=== PATIENT | female | born 1975 | race African-American/Black ===

== ENCOUNTER → 2016-11-08 | Outpatient (CLI) | payer MEDICARE, MEDICAID | LOC: OD 14:09 | PROVIDERS: ATTEND Family Medicine | DX: S49.91XA Unspecified injury of right shoulder and upper arm, initial encounter (principal); S89.91XA Unspecified injury of right lower leg, initial encounter; X58.XXXA Exposure to other specified factors, initial encounter ==

== ENCOUNTER → 2017-02-28 | Outpatient (CLI) | payer MEDICARE, MEDICAID ==
--- NOTE | 2017-02-28 14:21 | RADIOLOGY REPORT (SQ) ---
EXAM DESCRIPTION: KNEE LEFT 4 VIEWS COMPLETED DATE/TIME: 02/28/2017 10:24 am REASON FOR STUDY: PAIN IN LEFT KNEE M25.562 PAIN IN LEFT KNEE COMPARISON: None. NUMBER OF VIEWS: Four views. TECHNIQUE: AP, lateral, and both oblique radiographic images acquired of the left knee. LIMITATIONS: None. FINDINGS: MINERALIZATION: Normal. BONES: No acute fracture or dislocation. No worrisome bone lesions. Medial compartment and patellofem oral osteophytes. JOINT: No effusion. No chondrocalcinosis. OTHER: No other significant finding. IMPRESSION: Medial compartment and patellofemoral osteophytes. TECHNICAL DOCUMENTATION: JOB ID: [id number] [employer]- All Rights Reserved
== END ==
LOC: OD 10:01
PROVIDERS: ATTEND Family Medicine
DX: M25.562 Pain in left knee (principal)

== ENCOUNTER → 2017-03-21 | Outpatient (CLI) | payer MEDICARE, MEDICAID ==
--- NOTE | 2017-03-21 12:41 | RADIOLOGY REPORT (SQ) ---
EXAM DESCRIPTION: WRIST LEFT 3 VIEWS COMPLETED DATE/TIME: 03/21/2017 12:32 pm REASON FOR STUDY: PAIN IN LEFT WRIST M25.532 PAIN IN LEFT WRIST COMPARISON: None. NUMBER OF VIEWS: Three views. TECHNIQUE: AP, lateral, and oblique radiographic images acquired of the left wrist. LIMITATIONS: None. FINDINGS: MINERALIZATION: Normal. BONES: No acute fracture or dislocation. No worrisome bone lesions. Normal alignment. SOFT TISSUES: No soft tissue swelling. No foreign body. OTHER: No other significant finding. IMPRESSION: NEGATIVE STUDY OF THE LEFT WRIST. NO RADIOGRAPHIC EVIDENCE OF ACUTE INJURY. TECHNICAL DOCUMENTATION: JOB ID: [id number] [employer]- All Rights Reserved
== END ==
LOC: OD 11:49
PROVIDERS: ATTEND Family Medicine
DX: M25.532 Pain in left wrist (principal)

== ENCOUNTER 2018-05-08 16:58 | Emergency (ER) | payer MEDICARE, MEDICAID ==
[2018-05-08] MEDS ORDERED: PROMETHAZINE HCL 25 MG TABLET PO ONE (17:31)
--- NOTE | 2018-05-08 17:34 | ER Document Report ---
ED General - General Chief Complaint: Nausea/Vomiting Stated Complaint: VOMITING Time Seen by Provider: 05/08/18 17:27 Mode of Arrival: Ambulatory Information source: Patient Notes: 42-year-old female presents emergency department with complaints of nausea, generally weak, and a missed period. Patient is concerned that she is . She took a test that was -2 days ago. Patient's coming here for another test. She denies any abdominal pain, vomiting, diarrhea, constipation, vaginal bleeding, vaginal discharge TRAVEL OUTSIDE OF THE [place] IN LAST 30 DAYS: No - HPI Onset: Last week Onset/Duration: Gradual Quality of pain: No pain Severity: None Pain Level: Denies Associated symptoms: Nausea Exacerbated by: Denies Relieved by: Denies Similar symptoms previously: No Recently seen / treated by doctor: No - Related Data Allergies/Adverse Reactions: lisinopril [Lisinopril] Allergy (Mild, Verified 05/08/18 17:14) rash penicillin V potassium [From Pen-Vee K] Allergy (Mild, Verified 05/08/18 17:14) rash ondansetron [Ondansetron] Adverse Reaction (Intermediate, Verified 05/08/18 17: 14) Generalized Itching Past Medical History - General Information source: Patient - Social History Smoking Status: Former Smoker Frequency of alcohol use: None Drug Abuse: None Family History: Hypertension Patient has suicidal ideation: No Patient has homicidal ideation: No - Past Medical History Cardiac Medical History: Reports: Hx Hypertension Pulmonary Medical History: Reports: Hx Asthma Neurological Medical History: Reports: Hx Cerebrovascular Accident - Pt reports CVA from HTN 07/2012 Renal/ Medical History: Denies: Hx Peritoneal Dialysis Musculoskeletal Medical History: Reports Hx Arthritis, Reports Hx Musculoskeletal Deformity, Reports Hx Musculoskeletal Trauma Psychiatric Medical History: Reports: Hx Depression Past Surgical History: Reports: Hx Cholecystectomy, Hx Orthopedic Surgery - rotator cuff 11/20/12, knee, - Immunizations Immunizations up to date: No Hx Diphtheria, Pertussis, Tetanus Vaccination: No Hx Pneumococcal Vaccination: 07/03/00 Review of Systems - Review of Systems Constitutional: No symptoms reported EENT: No symptoms reported Cardiovascular: No symptoms reported Respiratory: No symptoms reported Gastrointestinal: No symptoms reported Genitourinary: No symptoms reported Female Genitourinary: Irregular period Musculoskeletal: No symptoms reported Skin: No symptoms reported Hematologic/Lymphatic: No symptoms reported Neurological/Psychological: No symptoms reported -: Yes All other systems reviewed and negative Physical Exam - Vital signs Vitals: Temp Pulse Resp BP Pulse Ox 98.3 F 75 16 113/70 96 05/08/18 17:03 05/08/18 17:03 05/08/18 17:03 05/08/18 17:03 05/08/18 17:03 - General Notes: PHYSICAL EXAMINATION: GENERAL: Well-appearing, well-nourished and in no acute distress. HEAD: Atraumatic, normocephalic. EYES: Pupils equal round and reactive to light, extraocular movements intact, conjunctiva are normal. ENT: Nares patent, oropharynx clear without exudates. Moist mucous membranes. NECK: Normal range of motion, supple without lymphadenopathy LUNGS: Breath sounds clear to auscultation bilaterally and equal. No wheezes rales or rhonchi. HEART: Regular rate and rhythm without murmurs ABDOMEN: Soft, nontender, nondistended abdomen. No guarding, no rebound. No masses appreciated. Female : deferred Musculoskeletal: Normal range of motion, no pitting or edema. No cyanosis. NEUROLOGICAL: Cranial nerves grossly intact. Normal speech, normal gait. Normal sensory, motor exams PSYCH: Normal mood, normal affect. SKIN: Warm, Dry, normal turgor, no rashes or lesions noted. Course - Re-evaluation Re-evalutation: 05/08/18 18:42 urinalysis does not show signs of infection. Negative . Patient instructed to follow-up with the primary care physician this week, to take over- the-counter medication as needed for symptom relief, to use the medication prescribed as directed, and to return for worsening symptoms. Patient is agreeable to plan of care. - Vital Signs Vital signs: Temp Pulse Resp BP Pulse Ox 98.3 F 75 16 113/70 96 05/08/18 17:03 05/08/18 17:03 05/08/18 17:03 05/08/18 17:03 05/08/18 17:03 Discharge - Discharge Clinical Impression: Nausea & vomiting Qualifiers: Vomiting type: unspecified Vomiting Intractability: unspecified Qualified Code( s): R11.2 - Nausea with vomiting, unspecified Condition: Good Disposition: HOME, SELF-CARE Instructions: Antinausea Medication ([facility]), Viral Syndrome ([facility]) Prescriptions: Ondansetron [Zofran Odt 4 mg Tablet] 1 tab PO Q4H PRN #15 tab.rapdis PRN Reason: For Nausea/Vomiting Referrals: JAILYN SERRANO DO [Primary Care Provider] - Follow up as needed
[2018-05-08 18:30] LABS: APPEARANCE,URINE CLOUDY; BILIRUBIN,URINE NEGATIVE (NEGATIVE); COLOR,URINE YELLOW; GLUCOSE, URINE NEGATIVE (NEGATIVE); KETONES,URINE NEGATIVE (NEGATIVE); LEUKOCYTE ESTERASE,URINE NEGATIVE (NEGATIVE); NITRITE,URINE NEGATIVE (NEGATIVE); PROTEIN,URINE NEGATIVE (NEGATIVE); URINE SPECIFIC GRAVITY 1.015; UROBILINOGEN,URINE NEGATIVE mg/dL (<2.0)
[2018-05-08 18:47] VITALS: BP 122/77
== END 2018-05-08 18:47 | disposition home or self-care (01) ==
LOC: ER 16:58
DX: R11.2 Nausea with vomiting, unspecified (principal); R53.1 Weakness; Z87.891 Personal history of nicotine dependence; I10 Essential (primary) hypertension; J45.909 Unspecified asthma, uncomplicated
CPT/HCPCS: 99284; 81025; 81001; A9270

== ENCOUNTER 2018-05-26 18:30 | Emergency (ER) | payer MEDICARE, MEDICAID ==
--- NOTE | 2018-05-26 20:15 | ER Document Report ---
ED Medical Screen (RME) - General Chief Complaint: Abdominal Pain Stated Complaint: ABDOMINAL PAIN Time Seen by Provider: 05/26/18 19:57 Notes: Patient thinks she may be . She has been feeling movement for the past 3 weeks. Not sure when her last menstrual cycle was. She is been feeling vomiting every day and is Z. She is feeling her sides are "irritating" . She was seen here 2 weeks ago and had a negative test but still think she is possibly . She also had a negative home test a couple of days ago. Patient had a tubal ligation in 2013. Has not had any fever. PMH: Cholecystectomy and C-sections. Hypertension. TRAVEL OUTSIDE OF THE [place] IN LAST 30 DAYS: No - Related Data Allergies/Adverse Reactions: lisinopril [Lisinopril] Allergy (Mild, Verified 05/08/18 17:14) rash penicillin V potassium [From Pen-Vee K] Allergy (Mild, Verified 05/08/18 17:14) rash ondansetron [Ondansetron] Adverse Reaction (Intermediate, Verified 05/08/18 17: 14) Generalized Itching Past Medical History - Social History Frequency of alcohol use: None Drug Abuse: None - Past Medical History Cardiac Medical History: Reports: Hx Hypertension Pulmonary Medical History: Reports: Hx Asthma Neurological Medical History: Reports: Hx Cerebrovascular Accident - Pt reports CVA from HTN 07/2012 Renal/ Medical History: Denies: Hx Peritoneal Dialysis Musculoskeltal Medical History: Reports Hx Arthritis, Reports Hx Musculoskeletal Deformity, Reports Hx Musculoskeletal Trauma Psychiatric Medical History: Reports: Hx Depression Past Surgical History: Reports: Hx Cholecystectomy, Hx Orthopedic Surgery - rotator cuff 11/20/12, knee, - Immunizations Immunizations up to date: No Hx Diphtheria, Pertussis, Tetanus Vaccination: No Physical Exam - Vital signs Vitals: Temp Pulse Resp BP Pulse Ox 98.2 F 76 18 138/111 H 98 05/26/18 18:37 05/26/18 18:37 05/26/18 18:37 05/26/18 18:37 05/26/18 18:37 Course - Vital Signs Vital signs: Temp Pulse Resp BP Pulse Ox 98.2 F 76 18 138/111 H 98 05/26/18 18:37 05/26/18 18:37 05/26/18 18:37 05/26/18 18:37 05/26/18 18:37 Doctor's Discharge - Discharge Referrals: JAILYN SERRANO DO [Primary Care Provider] - Follow up as needed
[2018-05-26 20:45] LABS: ALANINE AMINOTRANSFERASE 17 U/L (9-52); ALBUMIN 3.9 g/dL (3.5-5.0); ALKALINE PHOSPHATASE 56 U/L (38-126); ANION GAP 11 (5-19); APPEARANCE,URINE CLOUDY; ASPARTATE AMINO TRANSFERASE 19 U/L (14-36); BILIRUBIN,DIRECT 0.1 mg/dL (0.0-0.4); BILIRUBIN,TOTAL 0.2 mg/dL (0.2-1.3); BILIRUBIN,URINE NEGATIVE (NEGATIVE); BLOOD UREA NITROGEN 13 mg/dL (7-20); CALCIUM 9.5 mg/dL (8.4-10.2); CARBON DIOXIDE 27 mmol/L (22-30); CHLORIDE 102 mmol/L (98-107); COLOR,URINE YELLOW; GLUCOSE 99 mg/dL (75-110); GLUCOSE, URINE NEGATIVE (NEGATIVE); KETONES,URINE NEGATIVE (NEGATIVE); LEUKOCYTE ESTERASE,URINE NEGATIVE (NEGATIVE); LIPASE 150.1 U/L (23-300); NITRITE,URINE NEGATIVE (NEGATIVE); POTASSIUM 4.4 mmol/L (3.6-5.0); PROTEIN,URINE NEGATIVE (NEGATIVE); SODIUM 140.2 mmol/L (137-145); TOTAL PROTEIN 7.1 g/dL (6.3-8.2); URINE SPECIFIC GRAVITY 1.016; UROBILINOGEN,URINE NEGATIVE mg/dL (<2.0)
[2018-05-26 20:50] LABS: ABSOLUTE EOSINOPHILS # (AUTO) 0.1 10^3/uL (0.0-0.6); ABSOLUTE LYMPHOCYTES (AUTO) 2.3 10^3/uL (0.5-4.7); ABSOLUTE MONOCYTES (AUTO) 0.5 10^3/uL (0.1-1.4); ABSOLUTE NEUT (AUTO) 2.8 10^3/uL (1.7-8.2); BASOPHILS % (AUTO) 0.5 % (0-2); EOSINOPHILS % (AUTO) 1.4 % (0-6); HEMATOCRIT 34.6 % (36.0-47.0); HEMOGLOBIN 11.8 g/dL (12.0-15.5); LYMPHOCYTES % (AUTO) 39.8 % (13-45); MEAN CORPUSCULAR HEMOGLOBIN 30.1 pg (27.0-33.4); MEAN CORPUSCULAR HGB CONC 34.1 g/dL (32.0-36.0); MEAN CORPUSCULAR VOLUME 88 fl (80-97); MONOCYTES % (AUTO) 8.5 % (3-13); PLATELET COUNT 295 10^3/uL (150-450); RED BLOOD COUNT 3.92 10^6/uL (3.72-5.28); SEGMENTED NEUTROPHILS % (AUTO) 49.8 % (42-78); TOTAL CELLS COUNTED % (AUTO) 100 %; WHITE BLOOD COUNT 5.7 10^3/uL (4.0-10.5)
--- NOTE | 2018-05-26 21:00 | ER Document Report ---
ED General - General Chief Complaint: Abdominal Pain Stated Complaint: ABDOMINAL PAIN Time Seen by Provider: 05/26/18 19:57 Notes: Patient is a 42-year-old female, , who presents to the emergency department with chief complaints of nausea and vomiting. She states she has a feeling of possibly having a baby inside. She states her menstrual cycles have been very light the past few months. Her last actual regular flow menstrual cycle was in January. She denies any dysuria, fever, or diarrhea. She has history of a tubal ligation in 2013. Her last she delivered a 2 pound baby. Also her first , she ended up miscarrying. Her past medical history includes hypertension, depression, and a TIA in 2011. TRAVEL OUTSIDE OF THE [place] IN LAST 30 DAYS: No - Related Data Allergies/Adverse Reactions: lisinopril [Lisinopril] Allergy (Mild, Verified 05/08/18 17:14) rash penicillin V potassium [From Pen-Vee K] Allergy (Mild, Verified 05/08/18 17:14) rash ondansetron [Ondansetron] Adverse Reaction (Intermediate, Verified 05/08/18 17: 14) Generalized Itching Past Medical History - Social History Smoking Status: Never Smoker Frequency of alcohol use: None Drug Abuse: None Family History: Hypertension Patient has suicidal ideation: No Patient has homicidal ideation: No - Past Medical History Cardiac Medical History: Reports: Hx Hypertension Pulmonary Medical History: Reports: Hx Asthma Neurological Medical History: Reports: Hx Cerebrovascular Accident - Pt reports CVA from HTN 07/2012 Renal/ Medical History: Denies: Hx Peritoneal Dialysis Musculoskeletal Medical History: Reports Hx Arthritis, Reports Hx Musculoskeletal Deformity, Reports Hx Musculoskeletal Trauma Psychiatric Medical History: Reports: Hx Depression Past Surgical History: Reports: Hx Cholecystectomy, Hx Orthopedic Surgery - rotator cuff 11/20/12, knee, - Immunizations Immunizations up to date: No Hx Diphtheria, Pertussis, Tetanus Vaccination: No Hx Pneumococcal Vaccination: 07/03/00 Review of Systems - Review of Systems Notes: REVIEW OF SYSTEMS: CONSTITUTIONAL : Denies recent illness. Denies recent unintentional weight loss. Denies fever, chills, or sweats. EENT: Denies eye, ear, throat, or mouth pain, discharge, or symptoms. Denies nasal or sinus congestion. CARDIOVASCULAR: Denies chest pain. RESPIRATORY: Denies shortness of breath, cough, congestion, difficulty breathing , or wheezing. GASTROINTESTINAL: See HPI GENITOURINARY: See HPI MUSCULOSKELETAL: Denies neck and back pain. Denies joint pain or swelling. SKIN: Denies rash, itchiness, or lesions HEMATOLOGIC : Denies easy bruising or bleeding. LYMPHATIC: Denies swollen, painful, enlarged glands. NEUROLOGICAL: Denies no numbness or tingling denies weakness. Denies headache. Denies altered mental status. Denies alteration in speech. PSYCHIATRIC: Denies stress, anxiety, alteration in sleep patterns, or depression. All other systems reviewed and negative. Physical Exam - Vital signs Vitals: Temp Pulse Resp BP Pulse Ox 98.2 F 76 18 138/111 H 98 05/26/18 18:37 05/26/18 18:37 05/26/18 18:37 05/26/18 18:37 05/26/18 18:37 - Notes Notes: PHYSICAL EXAMINATION: GENERAL: Obese, appears well, healthy, overly-nourished, no acute distress. HEAD: Normocephalic, atraumatic. EYES: PERRL, conjunctiva normal, all extraocular movements intact, sclera nonicteric ENT: Moist mucous membranes. NECK: Supple, no noticeable swelling, redness, rash. Normal range of motion. LUNGS: Equal breath sounds bilaterally and clear to auscultation. No wheezes rales or rhonchi. CARDIOVASCULAR: S1-S2, regular rate, regular rhythm. Radial pulses 2+, normal. ABDOMEN: Normoactive bowel sounds. Soft, nontender, no guarding, no rebound tenderness, and no masses palpated. EXTREMITIES: Normal strength and range of motion, no pitting or edema. No cyanosis. NEUROLOGICAL: Moves all extremities upon command. Strength 5/5 in all extremities. PSYCH: Normal mood, normal affect. SKIN: Warm, dry. No rash, lesions, ulcerations noted. Normal skin turgor. Course - Re-evaluation Re-evalutation: Patient's main concern is whether or not she is . Labs will be sent to confirm . 05/26/18 23:30 Patient's labs are unremarkable and she is not . I have discussed the findings with the patient. I have advised her to follow-up with her MAINTENANCE SERVICES DISPATCHER, in which she has an appointment on Monday already. She verbalized understanding of discharge instructions. She is stable for discharge. - Vital Signs Vital signs: Temp Pulse Resp BP Pulse Ox 98.9 F 77 18 119/82 98 05/26/18 23:37 05/26/18 23:37 05/26/18 23:37 05/26/18 23:37 05/26/18 23:37 - Laboratory Result Diagrams: 05/26/18 20:22 05/26/18 20:22 Laboratory results interpreted by me: 05/26/18 20:22 Hgb 11.8 L Hct 34.6 L Discharge - Discharge Clinical Impression: Abdominal pain Qualifiers: Abdominal location: unspecified location Qualified Code(s): R10.9 - Unspecified abdominal pain Condition: Stable Disposition: HOME, SELF-CARE Additional Instructions: You have been seen in the emergency department for abdominal pain. Your concerned you were . Your blood test is negative. Since you have an appointment on Monday with your MAINTENANCE SERVICES DISPATCHER, please keep that appointment and let them know that you were here in the emergency department. I have provided you some nausea medication if needed. If you feel your symptoms are getting worse, please return to the emergency department. Referrals: JAILYN SERRANO, [Primary Care Provider] - Follow up as needed
[2018-05-26] MEDS ORDERED: ONDANSETRON ODT 4 MG TAB (6 TAB/ER DISP) PO PRN (23:29)
[2018-05-26 23:58] VITALS: BP 119/82
== END 2018-05-26 23:37 | disposition home or self-care (01) ==
LOC: ER 18:30
DX: R10.9 Unspecified abdominal pain (principal); R11.2 Nausea with vomiting, unspecified; I10 Essential (primary) hypertension; J45.909 Unspecified asthma, uncomplicated; Z32.02 Encounter for pregnancy test, result negative; Z98.51 Tubal ligation status; Z87.59 Personal history of other complications of pregnancy, childbirth and the puerperium; Z86.73 Personal history of transient ischemic attack (TIA), and cerebral infarction without residual deficits; Z88.8 Allergy status to other drugs, medicaments and biological substances; Z88.0 Allergy status to penicillin; Z90.49 Acquired absence of other specified parts of digestive tract
CPT/HCPCS: 99284; 36415; 84702; 83690; 85025; 80053; 81001; A9270

== ENCOUNTER 2018-10-09 10:30 | Emergency (ER) | payer MEDICARE, MEDICAID ==
--- NOTE | 2018-10-09 11:57 | RADIOLOGY REPORT (SQ) ---
EXAM DESCRIPTION: ELBOW RIGHT OVER 2 VIEWS COMPLETED DATE/TIME: 10/09/2018 11:41 am REASON FOR STUDY: fall pain COMPARISON: None. NUMBER OF VIEWS: Three views TECHNIQUE: AP, lateral, and oblique radiographic images acquired of the right elbow. LIMITATIONS: None. FINDINGS: MINERALIZATION: Normal. BONES: No acute fracture or dislocation. No worrisome bone lesions. JOINT: No effusion. SOFT TISSUES: No soft tissue swelling. No foreign body. OTHER: No other significant finding. IMPRESSION: NEGATIVE STUDY OF THE RIGHT ELBOW. NO RADIOGRAPHIC EVIDENCE OF ACUTE INJURY. TECHNICAL DOCUMENTATION: JOB ID: [id number] [employer]- All Rights Reserved Reading location - IP/workstation name: [email or web address]
--- NOTE | 2018-10-09 11:58 | RADIOLOGY REPORT (SQ) ---
EXAM DESCRIPTION: KNEE RIGHT 4 VIEWS COMPLETED DATE/TIME: 10/09/2018 11:41 am REASON FOR STUDY: fall pain COMPARISON: None. NUMBER OF VIEWS: Four views. TECHNIQUE: AP, lateral, and both oblique radiographic images acquired of the right knee. LIMITATIONS: None. FINDINGS: MINERALIZATION: Normal. BONES: No acute fracture or dislocation. No worrisome bone lesions. JOINT: No effusion. SOFT TISSUES: No soft tissue swelling. No radio-opaque foreign body. OTHER: No other significant finding. IMPRESSION: NEGATIVE STUDY OF THE RIGHT KNEE. NO RADIOGRAPHIC EVIDENCE OF ACUTE INJURY. TECHNICAL DOCUMENTATION: JOB ID: [id number] [email or web address]- All Rights Reserved Reading location - IP/workstation name: [email or web address]
--- NOTE | 2018-10-09 12:04 | ER Document Report ---
ED Fall - General Chief Complaint: Fall Stated Complaint: RIGHT KNEE/ELBOW PAIN Time Seen by Provider: 10/09/18 10:52 Primary Care Provider: [facility] [Provider Group] - Follow up as needed JAILYN SERRANO DO [Primary Care Provider] - Follow up as needed Mode of Arrival: Wheelchair Information source: Patient Notes: 43-year-old female presents to ED for complaint of pain to her right shoulder knee and elbow after she fell down this morning at her son's school weight ground. She states she fell due to a previous stroke and she just tripped. Patient is alert oriented respirations regular and unlabored peaking in full sentences she is in a wheelchair TRAVEL OUTSIDE OF THE [place] IN LAST 30 DAYS: No - HPI Occurred: This morning Where: Public place - Son school Context: Tripped Associated symptoms: Difficulty walking Location of injury/pain: Elbow, Knee, Shoulder - Right Quality of pain: Sharp Severity: Moderate Pain Level: 3 - Related data Allergies/Adverse Reactions: lisinopril [Lisinopril] Allergy (Mild, Verified 10/09/18 11:08) rash penicillin V potassium [From Pen-Vee K] Allergy (Mild, Verified 10/09/18 11:08) rash codeine Allergy (Verified 10/09/18 11:08) latex Allergy (Verified 10/09/18 11:08) ondansetron [Ondansetron] Adverse Reaction (Intermediate, Verified 10/09/18 11:08) Generalized Itching Past Medical History - General Information source: Patient - Social History Smoking Status: Never Smoker Chew tobacco use (# tins/day): No Frequency of alcohol use: None Drug Abuse: None Family History: Hypertension Patient has suicidal ideation: No Patient has homicidal ideation: No - Past Medical History Cardiac Medical History: Reports: Hx Hypertension Pulmonary Medical History: Reports: Hx Asthma EENT Medical History: Reports: None Neurological Medical History: Reports: Hx Cerebrovascular Accident - Pt reports CVA from HTN 07/2012 Endocrine Medical History: Reports: None Renal/ Medical History: Reports: None Malignancy Medical History: Reports: None GI Medical History: Reports: None Musculoskeletal Medical History: Reports Hx Arthritis, Reports Hx Musculoskeletal Deformity, Reports Hx Musculoskeletal Trauma Skin Medical History: Reports None Psychiatric Medical History: Reports: Hx Depression Traumatic Medical History: Reports: None Infectious Medical History: Reports: None Past Surgical History: Reports: Hx Cholecystectomy, Hx Orthopedic Surgery - rotator cuff 11/20/12, knee, - Immunizations Immunizations up to date: No Hx Diphtheria, Pertussis, Tetanus Vaccination: No Hx Pneumococcal Vaccination: 07/03/00 Review of Systems - Review of Systems Constitutional: No symptoms reported EENT: No symptoms reported Cardiovascular: No symptoms reported Respiratory: No symptoms reported Gastrointestinal: No symptoms reported Genitourinary: No symptoms reported Female Genitourinary: No symptoms reported Musculoskeletal: Joint pain - Right shoulder knee and elbow. denies: Joint swelling Skin: No symptoms reported Hematologic/Lymphatic: No symptoms reported Neurological/Psychological: No symptoms reported -: Yes All other systems reviewed and negative Physical Exam - Vital signs Vitals: Temp Pulse Resp BP Pulse Ox 97.9 F 83 16 123/73 96 10/09/18 10:38 10/09/18 10:38 10/09/18 10:38 10/09/18 10:38 10/09/18 10:38 Interpretation: Normal - General General appearance: Appears well, Alert - HEENT Head: Tenderness - Right cheek Eyes: Normal Pupils: PERRL Ears: Normal External canal: Normal Tympanic membrane: Normal Sinus: Normal Nasal: Normal Mouth/Lips: Normal Mucous membranes: Normal Pharynx: Normal Neck: Normal - Respiratory Respiratory status: No respiratory distress Chest status: Nontender Breath sounds: Normal Chest palpation: Normal - Cardiovascular Rhythm: Regular Heart sounds: Normal auscultation Murmur: No - Abdominal Inspection: Normal Distension: No distension Bowel sounds: Normal Tenderness: Nontender Organomegaly: No organomegaly - Back Back: Normal, Nontender - Extremities General upper extremity: Normal inspection, Nontender, Normal color, Normal ROM, Normal temperature General lower extremity: Normal inspection, Nontender, Normal color, Normal ROM, Normal temperature, Normal weight bearing. No: Dewey's sign Shoulder: Tender, Limited ROM - Due to pain. No: Abrasion, Deformity, Dislocation, Ecchymosis, Instability, Laceration Elbow: Tender. No: Abrasion, Deformity, Dislocation, Ecchymosis, Instability, Joint effusion, Laceration, Limited ROM, Swollen bursa Forearm: Normal, Nontender Wrist: Normal, Nontender Hand: Normal, Nontender Knee: Tender, Ecchymosis, Pain with ROM, Patellar tendon intact, Tender joint line. No: Abrasion, Deformity, Dislocation, Drawer's test instability, Instability, Joint effusion, Laceration, Laxity with valgus stress, Laxity with varus stress, Popliteal fossa tender Calf: Normal, Nontender Ankle: Normal, Nontender Foot: Normal, Nontender - Neurological Neuro grossly intact: Yes Cognition: Normal Orientation: AAOx4 [place] Coma Scale Eye Opening: Spontaneous Deepti Coma Scale Verbal: Oriented Deepti Coma Scale Motor: Obeys Commands Deepti Coma Scale Total: 15 Speech: Normal Motor strength normal: LUE, RUE, LLE, RLE Sensory: Normal - Psychological Associated symptoms: Normal affect, Normal mood - Skin Skin Temperature: Warm Skin Moisture: Dry Skin Color: Normal Course - Re-evaluation Re-evalutation: 10/09/18 12:30 Waiting for results of x-ray 10/09/18 21:08 X-rays were negative and discussed with patient before discharge. Patient was instructed to follow-up with primary care doctor and orthopedics. Patient was instructed given instructions on elevation ice Tylenol and follow-up. Patient was able to verbalize understanding of instructions. - Vital Signs Vital signs: Temp Pulse Resp BP Pulse Ox 97.5 F 70 18 133/72 H 96 10/09/18 12:59 10/09/18 12:59 10/09/18 12:59 10/09/18 12:59 10/09/18 12:59 - Diagnostic Test Radiology reviewed: Image reviewed, Reports reviewed Discharge - Discharge Clinical Impression: Contusion of right elbow, initial encounter, Contusion of right shoulder, initial encounter Fall Qualifiers: Encounter type: initial encounter Qualified Code(s): W19.XXXA - Unspecified fall, initial encounter Contusion of right knee Qualifiers: Encounter type: initial encounter Qualified Code(s): S80.01XA - Contusion of right knee, initial encounter Condition: Stable Disposition: HOME, SELF-CARE Instructions: Knee Exercise Program (OM), Exercise Program for the Shoulder ([facility]), Stretching Exercises for the Back ([facility]) Additional Instructions: CONTUSION: Your injury has resulted in a contusion -- a crushing of the deep tissues. No injury to important structures was detected during the physician's exam. Contusions vary in the amount of pain they cause, and in the length of time required for healing. Typically, the area will become bruised, and will remain painful to touch for two or three weeks. However, most patients are back to working and playing within a few days. After the initial period of rest and cold-packs, your symptoms (together with the doctor's recommendations) will determine how rapidly you can get back to full activity. Usually this means "do what feels okay, but don't do things that hurt." If re-examination was recommended, it's important to follow up as instructed. Call the doctor or return any time if pain increases, if swelling becomes severe, if you develop numbness or weakness in an injured extremity, or if any other alarming symptoms occur. USE OF TYLENOL (ACETAMINOPHEN): Acetaminophen may be taken for pain relief or fever control. It's much safer than aspirin, offering a wider range of "safe" dosages. It is safe during . Some brand names are Tylenol, Panadol, Datril, Anacin 3, Tempra, and Liquiprin. Acetaminophen can be repeated every four hours. The following are maximum recommended dosages: WEIGHT Dose Drops Elixir Chewable(80mg) (LBS.) drprs=droppers tsp=teaspoon 6 40 mg 0.4 ml (1/2) 6-11 80 mg 0.8 ml (full) tsp 1 tab 12-16 120 mg 1 1/2 drprs 3/4 tsp 1 1/2 tabs 17-23 160 mg 2 drprs 1 tsp 2 tabs 24-30 240 mg 3 drprs 1 1/2 tsp 3 tabs 30-35 320 mg 2 tsp 4 tabs 36-41 360 mg 2 1/4 tsp 4 1/2 tabs 42-47 400 mg 2 1/2 tsp 5 tabs 48-53 480 mg 3 tsp 6 tabs 54-59 520 mg 3 1/4 tsp 6 1/2 tabs 60-64 560 mg 3 1/2 tsp 7 tabs 65-70 600 mg 3 3/4 tsp 7 1/2 tabs 71-76 640 mg 4 tsp 8 tabs 77-82 720 mg 4 1/2 tsp 9 tabs 83-88 800 mg 5 tsp 10 tabs >89 pounds or adults 650 mg to 900 mg Acetaminophen can be repeated every four hours. Maximum dose not to exceed 4000 mg a day. These maximum recommended dosages are slightly higher than the dosages written on the product container, but these dosages are very safe and below the toxic dosage for acetaminophen. ICE PACKS: Apply ice packs frequently against the painful area. Many different schedules are recommended, such as "20 minutes on, 20 minutes off" or "one hour ice, two hours rest." If you need to work, you may need to go longer between ice treatments. You should plan to have the area ice packed AT LEAST one fourth of the time. The ice should be applied over the wrap, tape, or splint, or over a layer of cloth -- not directly against the skin. Some ice bags have a built-in cloth and can be put directly on the skin. WARM PACKS: After approximately two days, apply gentle heat (such as a heating pad or hot water bottle) for about 20 to 30 minutes about every two hours -- at least four times daily. Warmth and elevation will help you make a more rapid recovery, and will ease the pain considerably. Do not use HOT heat, and never apply heat for longer than 30 minutes. The continuous heat can invisibly damage skin and muscles -- even when no burn is seen on the surface. Damaged muscles can make you MORE sore. FOLLOW-UP CARE: If you have been referred to a physician for follow-up care, call the physicians office for an appointment as you were instructed or within the next two days. If you experience worsening or a significant change in your symptoms, notify the physician immediately or return to the Emergency Department at any time for re-evaluation. Forms: Elevated Blood Pressure Referrals: JAILYN SERRANO DO [Primary Care Provider] - Follow up as needed [facility] [Provider Group] - Follow up as needed
--- NOTE | 2018-10-09 12:35 | RADIOLOGY REPORT (SQ) ---
EXAM DESCRIPTION: SHOULDER RIGHT 2 OR MORE VIEWS COMPLETED DATE/TIME: 10/09/2018 12:15 pm REASON FOR STUDY: fall pain COMPARISON: None. NUMBER OF VIEWS: Three views. TECHNIQUE: Internal rotation, external rotation, and Y view images acquired of the right shoulder. LIMITATIONS: None. FINDINGS: MINERALIZATION: Normal. BONES: No acute fracture or dislocation. No worrisome bone lesions. JOINTS: No dislocation. VISUALIZED LUNGS AND RIBS: No pneumothorax. No rib fracture. SOFT TISSUES: No radiopaque foreign body. OTHER: No other significant finding. IMPRESSION: NEGATIVE STUDY OF THE RIGHT SHOULDER. NO RADIOGRAPHIC EVIDENCE OF ACUTE INJURY. TECHNICAL DOCUMENTATION: JOB ID: [id number] [employer]- All Rights Reserved Reading location - IP/workstation name: [email or web address]
[2018-10-09 13:00] VITALS: BP 133/72
== END 2018-10-09 13:00 | disposition home or self-care (01) ==
LOC: ER 10:30
DX: S50.01XA Contusion of right elbow, initial encounter (principal); S40.011A Contusion of right shoulder, initial encounter; S80.01XA Contusion of right knee, initial encounter; W01.0XXA Fall on same level from slipping, tripping and stumbling without subsequent striking against object, initial encounter; Y92.219 Unspecified school as the place of occurrence of the external cause; I10 Essential (primary) hypertension; Z88.6 Allergy status to analgesic agent; Z88.0 Allergy status to penicillin; Z91.040 Latex allergy status; Z90.49 Acquired absence of other specified parts of digestive tract
CPT/HCPCS: 99283

== ENCOUNTER → 2019-02-26 | Outpatient (CLI) | payer MEDICARE, MEDICAID ==
--- NOTE | 2019-02-26 15:59 | RADIOLOGY REPORT (SQ) ---
EXAM DESCRIPTION: HIPS BILATERAL COMPLETED DATE/TIME: 02/26/2019 2:43 pm REASON FOR STUDY: BILATERAL HIP PAIN M25.551 PAIN IN RIGHT HIP M25.552 PAIN IN LEFT HIP COMPARISON: None. NUMBER OF VIEWS: Two views TECHNIQUE: AP pelvis and additional frog-leg view of both hips. LIMITATIONS: None. FINDINGS: MINERALIZATION: Normal. HIPS: No acute fracture or dislocation. No worrisome bone lesions. PELVIS AND SACRUM: No acute fracture or dislocation. No worrisome bone lesions. PUBIS AND ISCHIUM: No acute fracture. LOWER LUMBAR SPINE: No significant findings as visualized. SOFT TISSUES: No findings. OTHER: No other significant finding. IMPRESSION: NEGATIVE STUDY OF THE PELVIS AND HIPS. TECHNICAL DOCUMENTATION: JOB ID: [id number] [employer]- All Rights Reserved Reading location - IP/workstation name: [email or web address]
== END ==
LOC: OD 14:18
PROVIDERS: ATTEND Family Medicine
DX: M25.551 Pain in right hip (principal); M25.552 Pain in left hip
CPT/HCPCS: 73522

== ENCOUNTER 2019-03-02 11:59 | Emergency (ER) | payer OTHER, MEDICARE, MEDICAID ==
[2019-03-02 12:14] VITALS: BP 127/82
[2019-03-02] MEDS ORDERED: IBUPROFEN 800 MG TABLET PO ONE (12:29)
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
== END 2019-03-02 12:37 | disposition home or self-care (01) ==
LOC: ER 11:59
DX: M54.5 Low back pain (principal); M54.2 Cervicalgia; V87.7XXA Person injured in collision between other specified motor vehicles (traffic), initial encounter; J45.909 Unspecified asthma, uncomplicated; I10 Essential (primary) hypertension
CPT/HCPCS: 99283

== ENCOUNTER 2019-03-03 15:53 | Emergency (ER) | payer OTHER, MEDICARE, MEDICAID ==
[2019-03-03 17:03] VITALS: BP 139/90
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
[2019-03-03] MEDS ORDERED: ACETAMINOPHEN 325 MG TABLET PO ONE (18:36)
== END 2019-03-03 18:55 | disposition home or self-care (01) ==
LOC: ER 15:53
DX: S16.1XXA Strain of muscle, fascia and tendon at neck level, initial encounter (principal); M54.2 Cervicalgia; M54.5 Low back pain; V43.51XA Car driver injured in collision with sport utility vehicle in traffic accident, initial encounter; R25.2 Cramp and spasm; I10 Essential (primary) hypertension; J45.909 Unspecified asthma, uncomplicated; E66.9 Obesity, unspecified
CPT/HCPCS: 99283

== ENCOUNTER → 2019-03-11 | Outpatient (CLI) | payer OTHER, MEDICARE, MEDICAID ==
--- NOTE | 2019-03-11 13:04 | RADIOLOGY REPORT (SQ) ---
EXAM DESCRIPTION: C SP 4 OR 5 VIEWS COMPLETED DATE/TIME: 03/11/2019 12:05 pm REASON FOR STUDY: CERVICALGIA M54.2 CERVICALGIA COMPARISON: None. NUMBER OF VIEWS: Five views. TECHNIQUE: AP, lateral, obliques and odontoid radiographic images acquired of the cervical spine. LIMITATIONS: None. FINDINGS: MINERALIZATION: Normal. ALIGNMENT: Anatomic. VERTEBRAE: Vertebral bodies of normal height. DISCS: No significant osteophytes or sclerosis. Disc height maintained. FORAMINA: No osteophytes or foraminal narrowing. LATERAL AND POSTERIOR ELEMENTS: Facets, lateral masses and spinous processes without significant find ings. HARDWARE: None in the spine. SOFT TISSUES: No masses or calcifications. Lung apices clear. OTHER: No other significant finding. IMPRESSION: NO SIGNIFICANT RADIOGRAPHIC FINDING IN THE CERVICAL SPINE. TECHNICAL DOCUMENTATION: JOB ID: [id number] [employer]- All Rights Reserved Reading location - IP/workstation name: [email or web address]
== END ==
LOC: OD 11:45
PROVIDERS: ATTEND Family Medicine
DX: M54.2 Cervicalgia (principal)
CPT/HCPCS: 72050

== ENCOUNTER 2019-04-02 21:10 | Emergency (ER) | payer MEDICARE, MEDICAID ==
[2019-04-02 21:20] VITALS: BP 134/77
--- NOTE | 2019-04-02 22:15 | ER Document Report ---
ED Syncope and Near Syncope - General Chief Complaint: Fall Stated Complaint: SYNCOPAL EPISODE Time Seen by Provider: 04/02/19 21:57 Primary Care Provider: JAILYN SERRANO DO [Primary Care Provider] - Follow up as needed Notes: Patient is a 43-year-old female that comes to the emergency department by EMS for chief complaint of passing out at home. She states she remembers walking out to the mailbox but then she woke up on the ground on her right shoulder. She does admit that she has a "diet patch" and she has been having a lot of diarrhea, she is also been intermittently lightheaded. She denies chest pain, shortness of breath, headache, alcohol, recreational drugs. Past medical history includes hypertension, treated, and a CVA that left her with some right- sided deficits. Denies new focal numbness or weakness, denies incontinence. Family is at bedside. TRAVEL OUTSIDE OF THE [place] IN LAST 30 DAYS: No - Related Data Allergies/Adverse Reactions: lisinopril [Lisinopril] Allergy (Mild, Verified 03/03/19 15:55) rash penicillin V potassium [From Pen-Vee K] Allergy (Mild, Verified 03/03/19 15:55) rash codeine Allergy (Verified 03/03/19 15:55) latex Allergy (Verified 03/03/19 15:55) ondansetron [Ondansetron] Adverse Reaction (Intermediate, Verified 03/03/19 15:55) Generalized Itching Past Medical History - Social History Smoking Status: Never Smoker Family History: Hypertension Patient has suicidal ideation: No Patient has homicidal ideation: No - Past Medical History Cardiac Medical History: Reports: Hx Hypertension Pulmonary Medical History: Reports: Hx Asthma Neurological Medical History: Reports: Hx Cerebrovascular Accident - Pt reports CVA from HTN 07/2012 secondary to pain from a shoulder injury Renal/ Medical History: Denies: Hx Peritoneal Dialysis Musculoskeletal Medical History: Reports Hx Arthritis, Reports Hx Musculoskelet al Deformity, Reports Hx Musculoskeletal Trauma Psychiatric Medical History: Reports: Hx Depression Past Surgical History: Reports: Hx Cholecystectomy, Hx Orthopedic Surgery - rotator cuff 11/20/12, knee, - Immunizations Immunizations up to date: Yes Hx Diphtheria, Pertussis, Tetanus Vaccination: No Hx Pneumococcal Vaccination: 07/03/00 Physical Exam - Vital signs Vitals: Temp Pulse Resp BP Pulse Ox 98.6 F 81 18 134/77 H 99 04/02/19 21:18 04/02/19 21:18 04/02/19 21:18 04/02/19 21:18 04/02/19 21:18 - Notes Notes: GENERAL: Alert, interacts well. Sitting on the side of the bed. HEAD: Normocephalic, atraumatic. EYES: Pupils equal, round, and reactive to light. Extraocular movements intact. ENT: Oral mucosa moist, tongue midline. Oropharynx unremarkable. Airway patent. Nares patent, no nasal septal hematoma, TM's intact. NECK: Full range of motion. Supple. Trachea midline. LUNGS: Clear to auscultation bilaterally, no wheezes, rales, or rhonchi. No respiratory distress. HEART: Regular rate and rhythm. No murmur ABDOMEN: Soft, non-tender. Non-distended. Bowel sounds present in all 4 quadrants. GENITOURINARY: Deferred EXTREMITIES: Moves all 4 extremities spontaneously. Tender over the right shoulder generally, moves shoulder gingerly. Weak financial services professional. Normal capillary refill and sensation. No edema, normal dorsalis pedis pulses bilaterally. No cyanosis. BACK: Tender to the mid and paracervical areas. No thoracic, lumbar midline tenderness. No saddle anesthesia, normal distal neurovascular exam. Moves all extremities in full range of motion. Noted weakness in the right extremity with weak financial services professional. NEUROLOGICAL: Alert and oriented x3. Normal speech. Cranial nerves II through XII grossly intact. PSYCH: Normal affect, normal mood. SKIN: Warm, dry, normal turgor. No rashes or lesions noted. Course - Re-evaluation Re-evalutation: After evaluating the patient I discussed with her plans to perform work-up for her syncopal episode, place IV, placed on the monitor. She states that she just wants to go home now. She states she feels okay and she does not want any further evaluation. I explained to her that she could have an electrolyte abnormality causing an arrhythmia (because of her reported diarrhea) anemia,, fracture of the neck because of the tenderness on exam, or other extremely dangerous abnormality. Patient states she is aware of this but she does not think so, she states that regardless she wants to go home and she will see her primary care provider tomorrow. I explained that her symptoms and examination are too concerning and she needs additional evaluation patient declines, states she will sign out AGAINST MEDICAL ADVICE. I offered to make her more comfortable by providing her something for her right shoulder pain and neck pain following work-up but she still declines, she states that she was signing out AGAINST MEDICAL ADVICE and if she feels worse or if anything happens additionally she will return. Patient is alert, oriented, sitting straight up on the bed, denies any recreational substance and appears completely sober, family at bedside is supportive of her and states he will take her home and bring her back if she worsens. She still states she wants to sign out AGAINST MEDICAL ADVICE, she does appear to be completely capable of making this decision at this time. Discussed with Dr. Simon. Patient left AGAINST MEDICAL ADVICE. - Vital Signs Vital signs: Temp Pulse Resp BP Pulse Ox 98.6 F 81 18 134/77 H 99 04/02/19 21:18 04/02/19 21:18 04/02/19 21:18 04/02/19 21:18 04/02/19 21:18 Discharge - Discharge Clinical Impression: Neck pain Episode of syncope Qualifiers: Syncope type: unspecified Qualified Code(s): R55 - Syncope and collapse Diarrhea Qualifiers: Diarrhea type: unspecified type Qualified Code(s): R19.7 - Diarrhea, unspecified Right shoulder pain Qualifiers: Chronicity: acute Qualified Code(s): M25.511 - Pain in right shoulder Disposition: AGAINST MEDICAL ADVICE Additional Instructions: You have signed out AGAINST MEDICAL ADVICE. At this time it is possible that you have a fracture, electrolyte abnormality, or other concerning problem that could be very dangerous or even fatal. Please return at any time for additional evaluation. Referrals: JAILYN SERRANO, [Primary Care Provider] - Follow up as needed
--- NOTE | 2019-04-03 08:03 | EKG REPORT ---
SEVERITY:- NORMAL ECG - SINUS RHYTHM : Confirmed by: Vanessa Galan MD 03-Apr-2019 08:02:47
== END 2019-04-02 22:16 | disposition left against medical advice (07) ==
LOC: ER 21:10
DX: R55 Syncope and collapse (principal); M54.2 Cervicalgia; M25.511 Pain in right shoulder; W19.XXXA Unspecified fall, initial encounter; Y92.009 Unspecified place in unspecified non-institutional (private) residence as the place of occurrence of the external cause; Y93.89 Activity, other specified; R19.7 Diarrhea, unspecified; R42 Dizziness and giddiness; I10 Essential (primary) hypertension; J45.909 Unspecified asthma, uncomplicated; Z88.8 Allergy status to other drugs, medicaments and biological substances; Z88.0 Allergy status to penicillin; Z88.5 Allergy status to narcotic agent; Z91.040 Latex allergy status; Z53.29 Procedure and treatment not carried out because of patient's decision for other reasons
CPT/HCPCS: 93005; 93010

== ENCOUNTER 2019-04-03 11:44 | Emergency (ER) | payer MEDICARE, MEDICAID ==
--- NOTE | 2019-04-03 12:02 | ER Document Report ---
ED Medical Screen (RME) - General Chief Complaint: Syncope Stated Complaint: ABNORMAL LABS Time Seen by Provider: 04/03/19 11:52 Primary Care Provider: JAILYN SERRANO DO [Primary Care Provider] - Follow up as needed Mode of Arrival: Ambulatory Information source: Patient Notes: 43-year-old female presented to ED for complaint of passing out last night. She states she came to the emergency room last night and she was not able to stay for the work-up due to her son being ADHD and he needed his medication. She states she did leave before anything was completed. She states she is come back today to have her work-up completed. She states she lives alone with her son she does not smoke drink or do any drugs. She does have a history of a stroke and asthma. She states she has been having diarrhea neck pain shoulder pain. She states her gallbladder has been removed and she has had a for this child. She is alert oriented respirations regular nonlabored speaking in full sentences walks with even steady gait. I have greeted and performed a rapid initial assessment of this patient. A comprehensive ED assessment and evaluation of the patient, analysis of test results and completion of medical decision making process will be conducted by an additional ED providers. TRAVEL OUTSIDE OF THE [place] IN LAST 30 DAYS: No - Related Data Allergies/Adverse Reactions: lisinopril [Lisinopril] Allergy (Mild, Verified 04/03/19 11:53) rash penicillin V potassium [From Pen-Vee K] Allergy (Mild, Verified 04/03/19 11:53) rash codeine Allergy (Verified 04/03/19 11:53) latex Allergy (Verified 04/03/19 11:53) ondansetron [Ondansetron] Adverse Reaction (Intermediate, Verified 04/03/19 11:53) Generalized Itching Past Medical History - Social History Chew tobacco use (# tins/day): No Frequency of alcohol use: None Drug Abuse: None - Past Medical History Cardiac Medical History: Reports: Hx Hypertension Pulmonary Medical History: Reports: Hx Asthma Neurological Medical History: Reports: Hx Cerebrovascular Accident - Pt reports CVA from HTN 07/2012 secondary to pain from a shoulder injury Renal/ Medical History: Denies: Hx Peritoneal Dialysis Musculoskeltal Medical History: Reports Hx Arthritis, Reports Hx Musculoskeletal Deformity, Reports Hx Musculoskeletal Trauma Psychiatric Medical History: Reports: Hx Depression Past Surgical History: Reports: Hx Cholecystectomy, Hx Orthopedic Surgery - rotator cuff 11/20/12, knee, - Immunizations Immunizations up to date: Yes Hx Diphtheria, Pertussis, Tetanus Vaccination: No Physical Exam - Vital signs Vitals: Temp Pulse Resp BP Pulse Ox 98.4 F 76 16 129/89 H 98 04/03/19 11:49 04/03/19 11:49 04/03/19 11:49 04/03/19 11:49 04/03/19 11:49 Course - Vital Signs Vital signs: Temp Pulse Resp BP Pulse Ox 98.4 F 76 16 129/89 H 98 04/03/19 11:49 04/03/19 11:49 04/03/19 11:49 04/03/19 11:49 04/03/19 11:49 Doctor's Discharge - Discharge Referrals: JAILYN SERRANO DO [Primary Care Provider] - Follow up as needed
[2019-04-03 12:33] LABS: ABSOLUTE EOSINOPHILS # (AUTO) 0.1 10^3/uL (0.0-0.6); ABSOLUTE LYMPHOCYTES (AUTO) 2.1 10^3/uL (0.5-4.7); ABSOLUTE MONOCYTES (AUTO) 0.5 10^3/uL (0.1-1.4); ABSOLUTE NEUT (AUTO) 2.6 10^3/uL (1.7-8.2); BASOPHILS % (AUTO) 0.3 % (0-2); HEMOGLOBIN 11.7 g/dL (12.0-15.5); LYMPHOCYTES % (AUTO) 40.4 % (13-45); MEAN CORPUSCULAR HEMOGLOBIN 29.1 pg (27.0-33.4); MEAN CORPUSCULAR HGB CONC 33.4 g/dL (32.0-36.0); MEAN CORPUSCULAR VOLUME 87 fl (80-97); MONOCYTES % (AUTO) 9.1 % (3-13); PLATELET COUNT 299 10^3/uL (150-450); RED BLOOD COUNT 4.01 10^6/uL (3.72-5.28); SEGMENTED NEUTROPHILS % (AUTO) 48.2 % (42-78); TOTAL CELLS COUNTED % (AUTO) 100 %; WHITE BLOOD COUNT 5.3 10^3/uL (4.0-10.5)
[2019-04-03 12:51] LABS: ALKALINE PHOSPHATASE 55 U/L (38-126); ANION GAP 8 (5-19); ASPARTATE AMINO TRANSFERASE 24 U/L (14-36); BILIRUBIN,DIRECT 0.2 mg/dL (0.0-0.4); BILIRUBIN,TOTAL 0.3 mg/dL (0.2-1.3); BLOOD UREA NITROGEN 15 mg/dL (7-20); CALCIUM 9.3 mg/dL (8.4-10.2); CARBON DIOXIDE 26 mmol/L (22-30); CHLORIDE 104 mmol/L (98-107); CREATINE KINASE 211 U/L (30-135); GLUCOSE 102 mg/dL (75-110); POTASSIUM 4.7 mmol/L (3.6-5.0); TOTAL PROTEIN 7.5 g/dL (6.3-8.2)
--- NOTE | 2019-04-03 12:57 | ER Document Report ---
ED General - General Chief Complaint: Syncope Stated Complaint: ABNORMAL LABS Time Seen by Provider: 04/03/19 11:52 Primary Care Provider: JAILYN SERRANO DO [Primary Care Provider] - Follow up as needed Mode of Arrival: Ambulatory TRAVEL OUTSIDE OF THE [place] IN LAST 30 DAYS: No - HPI Notes: This is a 43-year-old female who presents today with a complaint of a syncopal episode that occurred yesterday. Patient states that she did have some cough, congestion, sinus pressure, postnasal drip for the past several days. She describes vertigo when she moves her head. Patient states she was going to the mailbox yesterday when she had an episode, assisted with nausea and she passed out. She fell, hitting her head and her right side. She has a history of previous CVA with residual right-sided weakness. She denies any new weakness today. She denies any speech or visual changes. She denies any chest pain. Patient states that she came in last night but could not wait for the completion of her evaluation so she left. She came back today for evaluation. She denies any new symptoms today. She describes her symptoms as moderate. Dizziness is worse with movement. - Related Data Allergies/Adverse Reactions: lisinopril [Lisinopril] Allergy (Mild, Verified 04/03/19 11:53) rash penicillin V potassium [From Pen-Vee K] Allergy (Mild, Verified 04/03/19 11:53) rash codeine Allergy (Verified 04/03/19 11:53) latex Allergy (Verified 04/03/19 11:53) ondansetron [Ondansetron] Adverse Reaction (Intermediate, Verified 04/03/19 11:53) Generalized Itching Past Medical History - General Information source: Patient - Social History Smoking Status: Never Smoker Chew tobacco use (# tins/day): No Frequency of alcohol use: None Drug Abuse: None Family History: Hypertension Patient has suicidal ideation: No Patient has homicidal ideation: No - Past Medical History Cardiac Medical History: Reports: Hx Hypertension Pulmonary Medical History: Reports: Hx Asthma Neurological Medical History: Reports: Hx Cerebrovascular Accident - Pt reports CVA from HTN 07/2012 secondary to pain from a shoulder injury Renal/ Medical History: Denies: Hx Peritoneal Dialysis Musculoskeletal Medical History: Reports Hx Arthritis, Reports Hx Musculoskeletal Deformity, Reports Hx Musculoskeletal Trauma Psychiatric Medical History: Reports: Hx Depression Past Surgical History: Reports: Hx Cholecystectomy, Hx Orthopedic Surgery - rotator cuff 11/20/12, knee, - Immunizations Immunizations up to date: Yes Hx Diphtheria, Pertussis, Tetanus Vaccination: No Hx Pneumococcal Vaccination: 07/03/00 Review of Systems - Review of Systems Constitutional: denies: Malaise, Weakness EENT: Nose congestion, Sinus pressure Cardiovascular: Syncope, Dizziness. denies: Chest pain, Palpitations, Orthopnea Respiratory: Cough Gastrointestinal: denies: Abdomen distended, Abdominal pain, Diarrhea Genitourinary: denies: Burning, Dysuria Neurological/Psychological: denies: Weakness, Speech impairment, Numbness -: Yes All other systems reviewed and negative Physical Exam - Vital signs Vitals: Temp Pulse Resp BP Pulse Ox 98.4 F 76 16 129/89 H 98 04/03/19 11:49 04/03/19 11:49 04/03/19 11:49 04/03/19 11:49 04/03/19 11:49 - General General appearance: Appears well, Alert - HEENT Head: Normocephalic, Atraumatic Eyes: Normal Pupils: PERRL Sinus: Tenderness - There is paranasal sinus tenderness. - Respiratory Respiratory status: No respiratory distress Chest status: Nontender Breath sounds: Normal Chest palpation: Normal - Cardiovascular Rhythm: Regular Heart sounds: Normal auscultation Murmur: No - Abdominal Inspection: Normal Distension: No distension Bowel sounds: Normal Tenderness: Nontender Organomegaly: No organomegaly - Neurological Neuro grossly intact: Yes Cognition: Normal Orientation: AAOx4 Deepti Coma Scale Eye Opening: Spontaneous Deepti Coma Scale Verbal: Oriented [place] Coma Scale Motor: Obeys Commands [place] Coma Scale Total: 15 Speech: Normal Cranial nerves: Other - There is reproducible and fatigable horizontal nystagmus. Motor strength normal: LUE - Patient has 5 out of 5 strength in the right upper and lower extremity. Patient states this is stable from a previous CVA with residual right-sided weakness. Otherwise nonfocal neurologic exam., LLE Sensory: Normal - Psychological Associated symptoms: Normal affect, Normal mood - Skin Skin Temperature: Warm Skin Moisture: Dry Skin Color: Normal Course - Re-evaluation Re-evalutation: 04/03/19 12:56 Differential diagnosis includes benign positional vertigo likely secondary to sinusitis/allergic rhinitis. It is likely etiology of her syncopal episode yesterday. There is no clinical suspicion for acute CVA. Differential diagnosis includes arrhythmia versus electrolyte abnormality. We will do a work-up today. EKG shows normal sinus rhythm at 71 bpm. Normal axis. Normal intervals. No ac diomede injury pattern. Normal EKG. 04/03/19 16:37 Patient reevaluated. Patient is doing well. No complaints at this time. Labs and imaging reviewed. I will cover her with Sheryl for sinusitis given her symptoms and her penicillin allergy. She is stable for discharge. Follow-up discussed with patient. - Vital Signs Vital signs: Temp Pulse Resp BP Pulse Ox 97.8 F 63 12 159/108 H 100 04/03/19 13:04 04/03/19 13:03 04/03/19 15:05 04/03/19 13:07 04/03/19 15:05 - Laboratory Result Diagrams: 04/03/19 12:20 04/03/19 12:20 Laboratory results interpreted by me: 04/03/19 04/03/19 04/03/19 12:20 12:20 13:00 Hgb 11.7 L Hct 35.0 L Creatine Kinase 211 H Urine Ascorbic Acid 40 H Discharge - Discharge Clinical Impression: Acute bacterial sinusitis, Vertigo Syncope Qualifiers: Syncope type: vasovagal syncope Qualified Code(s): R55 - Syncope and collapse Condition: Good Disposition: HOME, SELF-CARE Instructions: Vertigo ([facility]), Syncopal Episode ([facility]), Sinusitis ([facility]) Prescriptions: Meclizine HCl [Antivert 25 mg Tablet] 25 mg PO TID PRN #21 tablet PRN Reason: Doxycycline Monohydrate 100 mg PO BID #20 capsule Referrals: JAILYN SERRANO DO [Primary Care Provider] - Follow up as needed
[2019-04-03 13:02] LABS: CREATINE KINASE MB 1.01 ng/mL (<4.55)
[2019-04-03 13:04] LABS: TROPONIN I < 0.012 ng/mL
[2019-04-03] MEDS ORDERED: OXYCODONE-ACETAMINOPHEN 5-325 MG TABLET PO ONE (13:12)
[2019-04-03 13:21] LABS: APPEARANCE,URINE SLIGHTLY-CLOUDY; BILIRUBIN,URINE NEGATIVE (NEGATIVE); COLOR,URINE YELLOW; GLUCOSE, URINE NEGATIVE (NEGATIVE); KETONES,URINE NEGATIVE (NEGATIVE); LEUKOCYTE ESTERASE,URINE NEGATIVE (NEGATIVE); NITRITE,URINE NEGATIVE (NEGATIVE); PROTEIN,URINE NEGATIVE (NEGATIVE); URINE SPECIFIC GRAVITY 1.015; UROBILINOGEN,URINE NEGATIVE mg/dL (<2.0)
[2019-04-03 13:34] LABS: URINE AMPHETAMINES SCREEN NEGATIVE; URINE BARBITURATES SCREEN NEGATIVE; URINE BENZODIAZEPINES SCREEN NEGATIVE; URINE COCAINE SCREEN NEGATIVE; URINE MARIJUANA (THC) SCREEN NEGATIVE; URINE METHADONE SCREEN NEGATIVE; URINE PHENCYCLIDINE SCREEN NEGATIVE
[2019-04-03 13:39] VITALS: BP 159/108
--- NOTE | 2019-04-03 14:05 | RADIOLOGY REPORT (SQ) ---
EXAM DESCRIPTION: CT HEAD WITHOUT COMPLETED DATE/TIME: 04/03/2019 1:45 pm REASON FOR STUDY: syncope COMPARISON: 05/05/2016 TECHNIQUE: Axial images acquired through the brain without intravenous contrast. Images reviewed wi th bone, brain and subdural windows. Additional sagittal and coronal reconstructions were generated. Images stored on PACS. All CT scanners at this facility use dose modulation, iterative reconstruction, and/or weight based d osing when appropriate to reduce radiation dose to as low as reasonably achievable (ALARA). [facility]: Dose Right [facility]: CareDose [facility]: Dose Right [facility]: Teradose 4D [facility]: [employer] RADIATION DOSE: CT Rad equipment meets quality standard of care and radiation dose reduction techniq ues were employed. CTDIvol: 53.2 mGy. DLP: 1044 mGy-cm. mGy. LIMITATIONS: None. FINDINGS: VENTRICLES: Normal size and contour. CEREBRUM: No masses. No hemorrhage. No midline shift. Old left parietal infarction. No evidence f or acute infarction. Normal pacheco/white matter differentiation. No areas of low density in the white m atter. CEREBELLUM: No masses. No hemorrhage. No alteration of density. No evidence for acute infarction. EXTRAAXIAL SPACES: No fluid collections. No masses. ORBITS AND GLOBE: No intra- or extraconal masses. Normal contour of globe without masses. CALVARIUM: No fracture. PARANASAL SINUSES: No fluid or mucosal thickening. SOFT TISSUES: No mass or hematoma. OTHER: No other significant finding. IMPRESSION: Old left MCA infarction. No acute intracranial imaging finding. EVIDENCE OF ACUTE STROKE: NO. COMMENT: Quality ID # [id number]: Final reports with documentation of one or more dose reduction techniques (e.g., Automated exposure control, adjustment of the mA and/or kV according to patient size, use of iterative reconstruction technique) TECHNICAL DOCUMENTATION: JOB ID: [id number] [employer]- All Rights Reserved Reading location - IP/workstation name: [email or web address]
[2019-04-03] MEDS ORDERED: DOXYCYCLINE HYCLATE 100 MG TABLET PO ONE (16:39)
--- NOTE | 2019-04-03 19:53 | EKG REPORT ---
SEVERITY:- NORMAL ECG - SINUS RHYTHM : Confirmed by: Vanessa Galan MD 03-Apr-2019 19:53:03
== END 2019-04-03 17:12 | disposition home or self-care (01) ==
LOC: ER 11:44
DX: J01.90 Acute sinusitis, unspecified (principal); B96.89 Other specified bacterial agents as the cause of diseases classified elsewhere; R55 Syncope and collapse; R42 Dizziness and giddiness; R05 Cough; R09.81 Nasal congestion; R09.82 Postnasal drip; R51 Headache; R11.0 Nausea; I10 Essential (primary) hypertension; J45.909 Unspecified asthma, uncomplicated
CPT/HCPCS: 93005; 36415; 82553; 82550; 84703; 85025; 80053; 81001; 84484; 80307; 70450; 93010; A9270

== ENCOUNTER → 2020-04-28 | Outpatient (CLI) | payer MEDICARE, MEDICAID ==
--- NOTE | 2020-04-29 08:48 | XCELERA REPORT ---
[address] [address] Transthoracic Echocardiogram Report Name: TATE REED Age: 44 yrs Gender: Female : 1975 Patient Status: Outpatient Patient Location: Study Date: 04/28/2020 09:55 AM History: Chest pain Systemic hypertension Height: 63 in Weight: 290 lb BSA: 2.3 m2 Procedure: A complete two-dimensional transthoracic echocardiogram was performed (2D, M-mode, spectral and color flow Doppler). The study was technically difficult with many images being suboptimal in quality. Reason For Study: CP, HTN Previous Evaluation: No previous studies were available. History: Chest pain. HTN. Ordering Physician: MUSA ISRAEL Performed By: Kulwinder Michel Interpretation Summary The study was technically difficult with many images being suboptimal in quality. Left ventricular systolic function is normal. The Ejection Fraction estimate is 60-65% Doppler measurements suggest pseudonormalized left ventricular relaxation, which is associated with grade II/IV or mild to moderate diastolic dysfunction The right ventricle is normal in size and function. There is a trace amount of mitral regurgitation There is no aortic valve stenosis There is a trace amount of tricuspid regurgitation There is no pericardial effusion. MMode/2D Measurements & Calculations RVDd: 2.5 cm LVIDd: 4.3 cm FS: 36.3 % Ao root diam: 2.3 cm IVSd: 1.0 cm LVIDs: 2.8 cm EDV(Teich): 84.0 ml Ao root area: 4.0 cm2 LVPWd: 1.2 cm ESV(Teich): 28.3 ml LA dimension: 3.4 cm EF(Teich): 66.3 % Doppler Measurements & Calculations MV E max megan: MV P1/2t max megan: Ao V2 max: LV V1 max P.5 cm/sec 121.6 cm/sec 143.2 cm/sec 4.5 mmHg MV A max megan: MV P1/2t: 74.6 msec Ao max PG: LV V1 max: 89.3 cm/sec MVA(P1/2t): 2.9 cm2 8.2 mmHg 106.1 cm/sec MV E/A: 1.3 MV dec slope: 477.6 cm/sec2 MV dec time: 0.19 sec PA V2 max: MV P1/2t-pr_phl: 98.7 cm/sec 74.6 msec PA max P.9 mmHg Left Ventricle The left ventricle is normal in size. There is moderate concentric left ventricular hypertrophy. Left ventricular systolic function is normal. The Ejection Fraction estimate is 60-65%. Doppler measurements suggest pseudonormalized left ventricular relaxation, which is associated with grade II/IV or mild to moderate diastolic dysfunction. No regional wall motion abnormalities noted. Right Ventricle The right ventricle is normal in size and function. Atria The right atrium is normal. The left atrium is borderline dilated. Mitral Valve The mitral valve is grossly normal. There is no mitral valve stenosis. There is a trace amount of mitral regurgitation. Aortic Valve The aortic valve is normal in structure and function. The aortic valve is trileaflet. The aortic valve opens well. There is no aortic valve stenosis. No aortic regurgitation is present. Tricuspid Valve The tricuspid valve is normal in structure and function. There is a trace amount of tricuspid regurgitation. Tricuspid regurgitation jet envelope not well defined to measure RV systolic pressure accurately. Pulmonic Valve The pulmonic valve is normal in structure and function. There is no pulmonic valvular stenosis. There is a trace amount of pulmonic regurgitation. Great Vessels The aortic root is normal size. The inferior vena cava appeared normal and decreased > 50% with respiration (RAP 5-10 mmHg). Effusions There is no pericardial effusion. : MUSA ISRAEL Anil
== END ==
LOC: SP 09:29
PROVIDERS: ATTEND Internal Medicine
DX: R07.9 Chest pain, unspecified (principal); I10 Essential (primary) hypertension
CPT/HCPCS: 93306